=== PATIENT | male | born 1955 | race Caucasian/White ===

== ENCOUNTER 2016-09-29 11:52 | Emergency (ER) | payer OTHER ==
[~2016-09-29] VITALS: Ht 167.6 cm; Wt 68.0 kg
[~2016-09-29 11:52] MED LIST: ANUCORT-HC25 MG PR; ATHENOL325 MG PO; BACTRIM,SEPT1 TABLET PO; JOCK ITCH RELIE15 GM TP; LAMOTRIGINE150 MG PO; MIRALAX17 GM PO; NAPROSYN500 MG PO; PERCOCET 5/31 TABLET PO; PRAVASTATIN SOD40 MG PO; PROAIR HFA8.5 GM IH; VALIUM2 MG PO; VICODIN 5-3001 EACH PO; ZITHROMAX Z-PA250 MG PO
[2016-09-29 12:35] LABS: HEMATOCRIT 43.1 % (38.0-50.0); MCH 30.9 PG (29.0-34.0); MCHC 33.6 G/DL (30.0-36.0); MCV 91.7 FL (86-99); MEAN PLAT.VOLUME 9.5 uM^3 (9.0-12.4); PLATELET COUNT 223 K/uL (156-360); RBC DIS.WIDTH-CV 12.1 % (11.8-14.6); RBC DIS.WIDTH-SD 41.1 % (39-53); WHITE BLOOD COUNT 5.2 K/uL (4.1-10.2)
[2016-09-29 12:44] LABS: CHLORIDE 104 mEq/L (99-109); POTASSIUM 4.3 mEq/L (3.7-5.4); SODIUM 138 mEq/L (136-147)
[2016-09-29 12:46] LABS: GLUCOSE 90 mg/dL (70-99)
[2016-09-29 12:47] LABS: ANION GAP 8 MEQ/L (2-14)
[2016-09-29 12:50] LABS: GFR ESTIMATE (CALCULATED) > 59 mL/min/
[2016-09-29 12:51] LABS: UREA NITROGEN (BUN) 16 mg/dL (9-23)
[2016-09-29 12:57] LABS: TROP-I INTERPRETATION NEGATIVE; TROPONIN-I < 0.01 ng/mL (0.0-0.30)
[2016-09-29 14:17] LABS: TOTAL BILIRUBIN 0.7 mg/dL (0.0-1.0)
[2016-09-29 14:18] LABS: ALKALINE PHOSPHATASE 88 IU/L (3-129)
[2016-09-29 14:20] LABS: DIRECT BILIRUBIN 0.2 mg/dL (0.0-0.3)
[2016-09-29 14:21] LABS: LIPASE 22 U/L (1.0-51.0)
[2016-09-29] MEDS ORDERED: PRILOSEC20 MG PO (16:09)
[2016-09-29 16:47] VITALS: BP 118/76
== END 2016-09-29 16:54 | disposition home or self-care (01) ==
LOC: EME 11:52
DX: R10.13 Epigastric pain (principal); J44.9 Chronic obstructive pulmonary disease, unspecified; E78.5 Hyperlipidemia, unspecified; Z86.73 Personal history of transient ischemic attack (TIA), and cerebral infarction without residual deficits; Z87.891 Personal history of nicotine dependence
CPT/HCPCS: 71020; 80048; 80076; 83690; 84484; 85027; 93005; 99281; 99284

== ENCOUNTER 2017-04-09 12:17 | Emergency (ER) | payer BC ==
[~2017-04-09] VITALS: Ht 167.6 cm; Wt 70.7 kg
[~2017-04-09 12:17] MED LIST changes: +PRILOSEC20 MG PO
[2017-04-09 13:38] LABS: HEMATOCRIT 42.3 % (38.0-50.0); HEMOGLOBIN 14.2 G/DL (12.5-16.6); MCH 31.3 PG (29.0-34.0); MCHC 33.6 G/DL (30.0-36.0); MCV 93.4 FL (86-99); PLATELET COUNT 193 K/uL (156-360); RBC DIS.WIDTH-CV 12.2 % (11.8-14.6); RBC DIS.WIDTH-SD 42.5 % (39-53); RED BLOOD COUNT 4.53 M/uL (4.00-5.50); WHITE BLOOD COUNT 4.8 K/uL (4.1-10.2)
[2017-04-09 13:47] LABS: CHLORIDE 107 mEq/L (99-109); SODIUM 137 mEq/L (136-147)
[2017-04-09 13:49] LABS: GLUCOSE 84 mg/dL (70-99); TOTAL PROTEIN 6.3 g/dL (6.4-8.3)
[2017-04-09 13:51] LABS: TOTAL BILIRUBIN 0.5 mg/dL (0.0-1.0)
[2017-04-09 13:52] LABS: ALKALINE PHOSPHATASE 79 IU/L (3-129)
[2017-04-09 13:53] LABS: CREATININE 0.8 mg/dL (0.6-1.3); GFR ESTIMATE (CALCULATED) > 59 mL/min/ (58.99-99999)
[2017-04-09 13:54] LABS: AST (GOT) 16 IU/L (2-34); UREA NITROGEN (BUN) 12 mg/dL (9-23)
[2017-04-09 13:55] LABS: ALT (GPT) 12 IU/L (3-49)
[2017-04-09 13:56] LABS: LIPASE 8 U/L (1.0-51.0)
[2017-04-09] MEDS ORDERED: ULTRAM50 MG PO (15:11)
[2017-04-09 15:32] VITALS: BP 125/78
== END 2017-04-09 15:33 | disposition home or self-care (01) ==
LOC: EME 12:17
PROVIDERS: Nurse Practitioner Family
DX: S39.011A Strain of muscle, fascia and tendon of abdomen, initial encounter (principal); X58.XXXA Exposure to other specified factors, initial encounter; R10.33 Periumbilical pain; E78.5 Hyperlipidemia, unspecified; I10 Essential (primary) hypertension; Z86.73 Personal history of transient ischemic attack (TIA), and cerebral infarction without residual deficits; J44.9 Chronic obstructive pulmonary disease, unspecified
CPT/HCPCS: 74177; 80053; 81003; 83690; 85027; 99281; 99285; J1885; J7030